=== PATIENT | female | born 1955 | race Two or more races ===

== ENCOUNTER 2016-10-17 13:26 | Emergency (ER) | payer OTHER ==
[2016-10-17 14:03] VITALS: BMI 31.2
[2016-10-17 14:10] VITALS: BP 118/73; PULSE 87; RESP 20; TEMP 98; O2SAT 99
--- NOTE | 2016-10-17 15:05 | C.PDOC ---
History Of Present Illness 61 y/o female comes to ED asking for rx of suboxone. pt sts she snorts several bags of heroin per day. pt also taking percocet 10/325 tid for years for chronic pains in neck and arthritis. pt last filled rx on 09/23 for 120 tab. pt unable to afford to see pain workforce development specialist, and her pmd will not refill rx for percocet, and also told her to come to ed for an rx of suboxone. once i told patient i was unable to write for either prescription, but could have someone from crisis team come speak to her re detox or referral to doctor for suboxone;, pt unwilling to wait for someone on crisis team to come talk to her, and walked out. pt stated she was in withdrawal form heroin, but no signs of withdrawal noted. Time Seen by Provider: 10/17/16 14:22 Chief Complaint (Nursing): Med Refill Past Medical History Reviewed: Historical Data, Nursing Documentation, Vital Signs Vital Signs: Last Vital Signs Temp 98.0 F 10/17/16 14:04 Pulse 87 10/17/16 14:04 Resp 20 10/17/16 14:04 BP 118/73 10/17/16 14:04 Pulse Ox 99 10/17/16 14:04 - Medical History PMH: Arthritis, Asthma, Back Problems, HTN Surgical History: No Surg Hx Family History: States: Unknown Family Hx - Social History Hx Tobacco Use: No Hx Alcohol Use: Yes Hx Substance Use: Yes (heroin) - Immunization History Hx Tetanus Toxoid Vaccination: No Hx Influenza Vaccination: No Hx Pneumococcal Vaccination: No Review Of Systems Constitutional: Positive for: Chills, Sweats Cardiovascular: Negative for: Chest Pain Respiratory: Negative for: Cough Gastrointestinal: Negative for: Vomiting, Abdominal Pain, Diarrhea Physical Exam - Physical Exam Appears: Non-toxic, No Acute Distress Skin: Normal Color, Warm, Dry Head: Atraumatic, Normacephalic ED Course And Treatment O2 Sat by Pulse Oximetry: 99 Medical Decision Making Medical Decision Makin61 y/o female asking for suboxone and refill of percocet prescription. pt walked out whe told I could not refill rx. Disposition - Disposition Disposition: ELOPEMENT - ER ONLY Condition: STABLE - Clinical Impression Clinical Impression: Review of medication
== END 2016-10-17 14:22 | disposition left against medical advice (07) ==
LOC: C.ER 13:26
DX: Z76.0 Encounter for issue of repeat prescription (principal)